=== PATIENT | male | born 1960 | race Caucasian/White ===

== ENCOUNTER 2020-06-24 09:37 | Inpatient (IN) | payer OTHER ==
[~2020-06-24] VITALS: Ht 180.3 cm; Wt 79.4 kg
[2020-06-24 10:46] LABS: HEMOGLOBIN 16.8 gm/dl (14.0-17.5); RED BLOOD COUNT 5.26 M/UL (4.20-5.50); WHITE BLOOD COUNT 17.7 K/UL (4.5-11.0)
[2020-06-24 11:15] LABS: BUN/CREATININE RATIO 20 (0-10)
[2020-06-24] MEDS ORDERED: GABAPENTIN300 MG PO (13:10)
[2020-06-24] MEDS ORDERED: HYDROCODON-ACE1 EAC6 PO (13:11)
[2020-06-24] MEDS ORDERED: LATANOPROST2.5 ML OP (13:11)
[2020-06-24] MEDS ORDERED: CRESTOR10 MG PO (13:14)
[2020-06-25 03:42] LABS: HEMOGLOBIN 16.1 gm/dl (14.0-17.5); RED BLOOD COUNT 5.01 M/UL (4.20-5.50); WHITE BLOOD COUNT 16.2 K/UL (4.5-11.0)
[2020-06-25 04:01] LABS: BUN/CREATININE RATIO 27 (0-10)
--- NOTE | 2020-06-25 11:04 | NUR ---
AFTER GIVING THE PO POTASSIUM, PT VOMITED WITHIN A MINUTE AND THE MEDICATION DID COME BACK UP. I SPOKE WITH OSIEL ROMERO AND IV POTASSIUM WILL BE STARTED. WILL CONTINUE TO MONITOR PT.
[2020-06-26 03:16] LABS: HEMOGLOBIN 15.1 gm/dl (14.0-17.5); RED BLOOD COUNT 4.73 M/UL (4.20-5.50); WHITE BLOOD COUNT 16.3 K/UL (4.5-11.0)
[2020-06-26 03:37] LABS: BUN/CREATININE RATIO 25 (0-10)
[2020-06-27 04:02] LABS: HEMOGLOBIN 14.9 gm/dl (14.0-17.5); RED BLOOD COUNT 4.71 M/UL (4.20-5.50); WHITE BLOOD COUNT 14.2 K/UL (4.5-11.0)
[2020-06-27 04:21] LABS: BUN/CREATININE RATIO 22 (0-10)
[2020-06-27] MEDS ORDERED: ZOFRAN ODT 4 MG4 MG PO (13:40)
[2020-06-28 11:15] LABS: ADENOVIRUS F 40/41 Not Detected (Not Detected); ASTROVIRUS Not Detected (Not Detected); C DIFFICILE TOXIN A/B Not Detected (Not Detected); CAMPYLOBACTER Not Detected (Not Detected); CRYPTOSPORIDIUM Not Detected (Not Detected); CYCLOSPORA CAYETANENSIS Not Detected (Not Detected); ENTAMOEBA HISTOLYTICA Not Detected (Not Detected); ENTEROAGGREGATIVE E COLI Not Detected (Not Detected); ENTEROPATHOGENIC E COLI Not Detected (Not Detected); ENTEROTOXIGENIC E COLI Not Detected (Not Detected); GIARDIA LAMBLIA Not Detected (Not Detected); NOROVIRUS GI/GII Not Detected (Not Detected); PLESIOMONAS SHIGELLOIDES Not Detected (Not Detected); ROTAVIRUS A Not Detected (Not Detected); SALMONELLA Not Detected (Not Detected); SAPOVIRUS Not Detected (Not Detected); SHIGA-TOXIN-PRODUCING E COLI Not Detected (Not Detected); SHIGELLA/ENTEROINVASIVE E COLI Not Detected (Not Detected); VIBRIO Not Detected (Not Detected); VIBRIO CHOLERAE Not Detected (Not Detected); YERSINIA ENTEROCOLITICA Not Detected (Not Detected)
== END 2020-06-27 16:25 | disposition home or self-care (01) | DRG 392 ==
LOC: ER1 09:37 → M/S 12:06 → CDU 12:06 → M/S 15:37
PROVIDERS: Emergency Medicine; Internal Medicine; Physician Assistant; Physician Assistant Medical; ADMIT Internal Medicine
DX: A05.9 Bacterial foodborne intoxication, unspecified (principal); N17.9 Acute kidney failure, unspecified; E86.0 Dehydration; D72.829 Elevated white blood cell count, unspecified; E78.5 Hyperlipidemia, unspecified; F17.210 Nicotine dependence, cigarettes, uncomplicated; E87.6 Hypokalemia; Z20.822 Contact with and (suspected) exposure to COVID-19; Z79.899 Other long term (current) drug therapy; Z90.49 Acquired absence of other specified parts of digestive tract
CPT/HCPCS: 0240U; 36415; 71045; 80048; 80053; 82550; 82553; 83605; 83690; 83735; 83874; 84132; 84484; 85025; 85027; 87040; 87507; 93005; 96374; 96375; 96376; 99285; G0378; J2405; J2550; J3480; J7030

== ENCOUNTER → 2020-07-03 | Outpatient (CLI) | payer OTHER ==
[~2020-07-03] MED LIST: CRESTOR10 MG PO; GABAPENTIN300 MG PO; HYDROCODON-ACE1 EAC6 PO; LATANOPROST2.5 ML OP; ZOFRAN ODT 4 MG4 MG PO
== END ==
LOC: KOH-I 09:47
DX: R10.9 Unspecified abdominal pain (principal); R19.7 Diarrhea, unspecified; R11.10 Vomiting, unspecified; R94.5 Abnormal results of liver function studies
CPT/HCPCS: 74022

== ENCOUNTER → 2020-09-15 | Outpatient (CLI) | payer OTHER | LOC: KOH-I 08:27 | DX: F17.210 Nicotine dependence, cigarettes, uncomplicated (principal) | CPT/HCPCS: 71271 ==

== ENCOUNTER → 2021-12-11 | Outpatient (CLI) | payer OTHER | LOC: KOH-I 10:02 | DX: M54.50 Low back pain, unspecified (principal); M54.2 Cervicalgia; M47.814 Spondylosis without myelopathy or radiculopathy, thoracic region; M47.816 Spondylosis without myelopathy or radiculopathy, lumbar region | CPT/HCPCS: 72070; 72100 ==